=== PATIENT | male | born 1995 | race Caucasian/White ===

== ENCOUNTER 2019-06-12 12:01 | Emergency (ER) | payer BC ==
[2019-06-12 12:24] VITALS: BP 115/73
--- NOTE | 2019-06-12 12:24 | UC ---
Lower Extremity/Ankle HPI - HPI Summary HPI Summary: PT presents to for eval of left prox calf pain. Pt denies trauma. Pt states has tried to stretch but feels different than previous muscle strains so wanted to get checked. No analgesia taken today. No knee, hip pain. No paresthesia, , no weakness. no open wounds, ecchymosis No travel. No popliteal fossa pain. No h/o DVT - hypercoag. Pt's medications as entered in EMR by stand in were reviewed - History of Current Complaint Chief Complaint: UCLowerExtremity Stated Complaint: LT LEG PAIN Time Seen by Provider: 06/12/19 12:24 Hx Obtained From: Patient Onset/Duration: Gradual Onset Severity Currently: Mild Pain Intensity: 2 - Allergies/Home Medications Allergies/Adverse Reactions: Allergies Allergy/AdvReac Type Severity Reaction Status Date / Time dust, cats Allergy Unknown Unknown Uncoded 06/12/19 12:16 Reaction Details Home Medications: Home Medications Ibuprofen TAB* [Advil TAB*] 400 mg PO Q6H PRN 06/12/19 [History Confirmed ] PMH/Surg Hx/FS Hx/Imm Hx Previously Healthy: Yes - Surgical History Surgical History: None - Family History Known Family History: Positive: Non-Contributory - Social History Occupation: Student Lives: Dormitory/Roommates Alcohol Use: Weekly Substance Use Type: None Smoking Status (MU): Never Smoked Tobacco Review of Systems All Other Systems Reviewed And Are Negative: Yes Musculoskeletal: Positive: Other: - left calf pain Physical Exam - Summary Physical Exam Summary: Vital Signs Reviewed: Yes A+Ox3, no distress Eyes: Conjunctiva Clear ENT: Hearing grossly normal neck: supple Respiratory: Positive: No respiratory distress, No accessory muscle use Cardiovascular: skin color reflect adequate perfusion 2+ DP, PT CBT <2 sec Musculoskeletal Exam: + SLE + flex/ext knee,ankle + great to extension + TTP prox midline calf. No palpable spasm. No pain in popliteal fossa Neurological: Positive: Alert, ambulatory without difficulty + gross sensation throughout LE Psychological: Positive: Normal Response To proivder Skin: Positive: no rash, no ecchymosis, no edema Triage Information Reviewed: Yes Vital Signs: Initial Vital Signs Temp 98.2 F 06/12/19 12:18 Pulse 76 06/12/19 12:18 Resp 14 06/12/19 12:18 BP 115/73 06/12/19 12:18 Pulse Ox 98 06/12/19 12:18 Diagnostics - Radiology No standard instances Radiology Interpretation Completed By: Radiologist - Patient Name: ERMIGIO MC Medical Record#: [id number] Ordering Physician: Rose Masters MD Acct.#: [id number] : Age: 23 Sex: M Location: [facility] Exam Date: 06/12/19 1236 ADM Status: REG ER Order Information: VL LOWER EXT VEINS LEFT Accession Number: [id number] CPT: 64096 INDICATION: LEFT calf pain. Question potential popliteal cyst and DVT. COMPARISON: No relevant prior exams available on the [facility] PACS for comparison. TECHNIQUE: Dela Cruz scale, color Doppler, and spectral analysis of the deep veins of the LEFT lower extremity. Vessel compression, phasicity, and augmentation assessed. REPORT: The LEFT common femoral, great saphenous, profunda femoral, femoral, popliteal, peroneal, and posterior tibial veins are patent. Negative for fluid distention of the semimembranosus bursa to indicate a popliteal cyst. Images obtained at the mid posterior calf corresponding with the region of pain demonstrate normal dermal, subcutaneous tissue, and skeletal muscle tissue planes without sonographic abnormality. Patency of the RIGHT common femoral vein documented. IMPRESSION: #. No evidence for LEFT lower extremity deep venous thrombosis. #. Negative for popliteal cyst. <Electronically signed by Luis Graham MD in OV> 06/12/19 1328 Dictated By: Luis Graham MD Dictated Date/Time: 06/12/19 1325 Transcribed Date/Time: 06/12/19 1325 Copy to: CC:Rose Masters MD; No Primary Care Phys,NOPCP Imaging - [facility] [address] [address] ph ( [phone]) ph ([phone]) ph ([phone]) This report is only to be considered final once signed by the Provider(s) as displayed in the "< Electronically Signed by >" field (s). Absence of a signature indicates the report is in a draft status and still needs to be finalized. In the event this document was created by someone other than the signing Provider, the individual initiating the document will be listed in the "Entered by:" or "Dictated by:" awan. 1 of 1 Patient Name: REMIGIO MC Medical Record#: [id number] Ordering Physician : Rose Masters MD Acct.#: [id number] : 1995 Age: 23 Sex: M Location: [facility] Exam Date: 06/12/19 1239 ADM Status: REG ER Order Information: KNEE LEFT 4+ VWS Accession Number: [id number] CPT: 55538 Indication: Multiple days LEFT calf pain without known injury. Comparison: No relevant prior exams available on the [facility] PACS for comparison. Technique: LEFT knee: AP, tunnel, lateral, sunrise views. Report: Negative for joint effusion, fracture, or articular malalignment. Preserved joint spaces. Unremarkable soft tissue contours. IMPRESSION: #. Negative exam. <Electronically signed by Luis Graham MD in OV> 06/12/19 1325 Dictated By: Luis Graham MD Dictated Date/Time: 06/12/19 1324 Transcribed Date/Time: 06/12/19 132 Copy to: CC:Rose Masters MD; No Primary Care Phys,NOPCP Imaging - [facility] [address] [address] ph ([phone]) ph ([phone]) ph ([phone]) This report is only to be considered final once signed by the Provider(s) as displayed in the "< Electronically Signed by >" field (s). Absence of a signature indicates the report is in a draft status and still needs to be finalized. In the event this document was created by someone other than the signing Provider, the individual initiating the document will be listed in the "Entered by:" or "Dictated by:" awan. 1 of Re-Evaluation - Re-Evaluation First Eval Comment: reviewed imaging. recommend guillermo for support, crutches. d/u with sports med. heat. stretch. motrin/apap. pt comfortable with plan. pt declined offered to talk to parents. return precautions discussed Lower Extremity Course/Dx - Course Course Of Treatment: PT presents for eval of left calf pain. No recollection of trauma. no analgesia today on exam VSS distal CSM intact Pain midling prox calf. no palpable abnormality will check U/s and imaging declined analgesia - Differential Dx/Diagnosis Provider Diagnosis: Pain of left calf Discharge ED - Sign-Out/Discharge Documenting (check all that apply): Patient Departure All imaging exams completed and their final reports reviewed: Yes - Discharge Plan Condition: Stable Disposition: HOME Patient Education Materials: Muscle Strain (ED) Referrals: Sports Medicine [facility] [Provider Group] FRANCIS CAMACHO [[facility], [facility], OTHER] - Additional Instructions: As discussed, the imaging you had done today which included ultrasound as well as x-rays did not identify any concerning cause for her symptoms. Her symptoms are likely related to a muscle strain or pull. It's recommended the following: - Wear Guillermo wrap for comfort and support - Okay to alternate ibuprofen (Advil, Motrin) and Tylenol (acetaminophen) every 3 hours for pain or fever. Take with food. Do NOT take for more than 4-5 days. - Okay to apply heat to your muscle then slow stretching exercises - Contact [facility] or the sports medicine office to today to schedule a recheck next week - If you develop increased pain, swelling, temperature change or color change her toes, or other concerns recommended to be reevaluated in urgent care or the emergency department. - You have been given a copy of your imaging on a CD. This also has the reports that by radiologist today. It's recommended droopiness to any follow- up appointment - Contact your doctor or return questions or concerns. - Billing Disposition and Condition Condition: STABLE Disposition: Home
== END 2019-06-12 13:52 | disposition home or self-care (01) ==
LOC: UCCORT 12:01
DX: Z91.09 Other allergy status, other than to drugs and biological substances (principal)
CPT/HCPCS: 99201; G0463